=== PATIENT | male | born 1955 | race Caucasian/White ===

== ENCOUNTER → 2018-03-03 | Outpatient (CLI) | payer BC ==
[~2018-03-03] MED LIST: ATIVAN 0.50.5 MG/TAB PO; BENADRYL25 M2 PO; LEXAPRO 10MG10 MG PO; PRILOSEC 20MG20 MG PO; TOPROL XL 50MG50 MG PO; XARELTO20 MG PO
== END ==
LOC: COL.PUL 13:00
DX: R06.02 Shortness of breath (principal); Z87.891 Personal history of nicotine dependence
CPT/HCPCS: J7674